=== PATIENT | male | born 1935 | race Caucasian/White ===

== ENCOUNTER 2021-07-14 18:57 | Emergency (ER) | payer MEDICARE ==
[2021-07-14 19:31] LABS: BASOPHIL 0.5 % (0-2); EOSINOPHIL 1.7 % (0-7); HCT 40.6 % (42.0-52.0); HGB 13.4 g/dl (13.2-18.0); LYMPHOCYTE 23.4 % (15-48); MCH 31.8 pg (25.0-31.0); MCV 96.4 fL (78.0-100.0); MONOCYTE 8.6 % (0-12); MPV 11.3 fL (6.0-9.5); NRBC 0; PLT 246 K/uL (150-400); RBC 4.21 M/uL (4.70-6.00); RDW 13.2 % (11.5-14.0); WBC 7.7 K/uL (4.0-10.5)
[2021-07-14 19:53] LABS: ALBUMIN 3.6 g/dL (3.4-5.0); BILIRUBIN - TOTAL 0.7 mg/dL (0.2-1.0); BUN/CREAT RATIO (CALC) 17.5 RATIO; CREATININE 1.2 mg/dL (0.67-1.17); FT4 (FREE T4) 1.6 ng/dL (0.76-1.46); GLOBULIN (CALCULATION) 3.1 g/dL; MAGNESIUM 1.6 mg/dL (1.8-2.4); POTASSIUM 3.5 mmol/L (3.5-5.1); TOTAL PROTEIN 6.7 g/dL (6.4-8.2)
[2021-07-14 20:01] LABS: LACTIC ACID 5.9 mmol/L (0.4-1.9)
[2021-07-14 22:04] LABS: INR 1.28 (0.9-1.2); PROTHROMBIN TIME 15.3 SECONDS (11.8-13.4)
[2021-07-14 22:05] LABS: PTT 37.1 SECONDS (24.4-34.7)
[2021-07-14 22:44] LABS: BILIRUBIN NEGATIVE (NEGATIVE); BLOOD NEGATIVE Ery/uL (NEGATIVE); CLARITY CLEAR (CLEAR); COLOR YELLOW (YELLOW); GLUCOSE (U) 1+ mg/dL (NORMAL); LEUKOCYTES NEGATIVE Leu/uL (NEGATIVE); NITRITE NEGATIVE (NEGATIVE); PROTEIN 1+ mg/dL (NEGATIVE); SPECIFIC GRAVITY >=1.030 (1.001-1.030); UROBILINOGEN 0.2 mg/dL (0.2-1.0); pH 5.5 (5.0-9.0)
[2021-07-14 22:54] LABS: AMORPHOUS URATES CRYSTALS MODERATE; BACTERIA TRACE; MUCOUS MODERATE; SQUAMOUS EPITHELIAL CELLS RARE; STARCH GRANULES PRESENT; URIC ACID CRYSTALS MODERATE; URINARY WBC RARE
== END 2021-07-15 03:06 | disposition other institution (70) ==
LOC: FER 18:57
PROVIDERS: Emergency Medicine Emergency Medical Services
DX: I44.1 Atrioventricular block, second degree (principal); I10 Essential (primary) hypertension; E11.9 Type 2 diabetes mellitus without complications; F03.90 Unspecified dementia, unspecified severity, without behavioral disturbance, psychotic disturbance, mood disturbance, and anxiety; Z79.82 Long term (current) use of aspirin; Z79.84 Long term (current) use of oral hypoglycemic drugs; Z79.899 Other long term (current) drug therapy; Z20.822 Contact with and (suspected) exposure to COVID-19
CPT/HCPCS: 36415; 70450; 71045; 80053; 80162; 81001; 82550; 83605; 83735; 83880; 84145; 84439; 84443; 84484; 85025; 85610; 85730; 87040; 93005; J0461; J1200; J1265; J2405; J2550; J3010; J3475; J7030; U0002